=== PATIENT | female | born 1985 | race Caucasian/White ===

== ENCOUNTER → 2024-04-18 08:02 | Outpatient (BNV) | payer OTHER, SELFPAY | PROVIDERS: Visit Provider Internal Medicine Cardiovascular Disease | DX: E21.3 Hyperparathyroidism, unspecified (principal); F31.9 Bipolar disorder, unspecified; F41.1 Generalized anxiety disorder | CPT/HCPCS: 93010 ==

== ENCOUNTER 2024-04-18 10:08 | Emergency (ER) | payer OTHER, SELFPAY ==
[2024-04-18 10:13] VITALS: RESP 20; BMI 22.6
[2024-04-18 10:23] VITALS: BP 120/63; PULSE 82; RESP 16; TEMP 36.6; O2SAT 99
--- NOTE | 2024-04-18 10:42 | PC.NURSE ---
Terri comes in today from Partial Hospitalization Program at [facility] on a section 12 accompanied by two clinicians. Terri reports to this RN that she has suicidal ideation with a plan to asphyxiate herself with helium because she found it was the easiest and most painless way to according to [employer] . Patient is calm and cooperative, help seeking and verbalizes understanding of why she was brought over to the pod from partial. patient is aware she is one a section 12 for her safety. Pt reports that she was recently diagnosed with Bipolar II after struggling with symptoms of hypomania, pressured speech and periods of depression. She also endorses a PTSD history due to her alcoholic mother. patient reports that her treats her poorly at times and the only times he is nice to her is when he is high or intoxicated . Patient reports they have a son at home as well. Patient did have blood work taken this am for her psychiatrist, plan to hold off on additional bloodwork until provider has signed up for patient
[2024-04-18 11:06] LABS: Appearance Urine Clear; Color Urine Yellow; Glucose Urine UA Negative (Negative); Leukocyte Esterase Urine Negative (Negative); Nitrite Urine Negative (Negative); Specific Gravity - Urine <= 1.005 (1.005-1.025); Urine Blood Negative (Negative); Urine Ketones Negative (Negative); Urine Protein Negative (Neg-Trace)
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
[2024-04-18 11:07] VITALS: BP 114/92; PULSE 74; RESP 16; TEMP 36.8; O2SAT 97
[2024-04-18 11:09] LABS: Amphetamine Screen Urine Not Detected (Not Detect); Barbiturates, Urine Not Detected (Not Detect); Benzodiazepines Screen Urine Not Detected (Not Detect); Buprenorphine Scr Not Detected (Not Detect); Cannabinoid Screen Urine Not Detected (Not Detect); Cocaine Screen Urine Not Detected (Not Detect); Fentanyl, urine Not Detected (Not Detect); Methadone Screen, Urine Not Detected (Not Detect); Opiate Screen Urine Not Detected (Not Detect); Oxycodone Screen Urine Not Detected (Not Detect); Phencyclidine Screen Urine Not Detected (Not Detect)
[2024-04-18 11:34] LABS: UPreg QC Valid YES; Urine Pregnancy NEGATIVE (NEGATIVE)
--- NOTE | 2024-04-18 11:47 | PC.NURSE ---
Disregard Acute Care Transfer Worksheet, wrong patient
--- NOTE | 2024-04-18 14:45 | MHC.CARE ---
LVM with patient's requesting call back
[2024-04-18 15:40] VITALS: BP 97/66; PULSE 74; RESP 16; TEMP 37; O2SAT 98
== END 2024-04-18 15:41 | disposition home or self-care (01) ==
PROVIDERS: Emergency Provider Emergency Medicine
DX: F33.1 Major depressive disorder, recurrent, moderate (principal); R45.851 Suicidal ideations; F43.9 Reaction to severe stress, unspecified; Z63.0 Problems in relationship with spouse or partner; Z79.899 Other long term (current) drug therapy; Z51.81 Encounter for therapeutic drug level monitoring
CPT/HCPCS: 80307; 81003; 81025; 99285; S9485

== ENCOUNTER → 2024-04-19 09:00 | Outpatient (BNV) | payer OTHER, SELFPAY | PROVIDERS: Visit Provider Psychiatry & Neurology Psychiatry | DX: F31.81 Bipolar II disorder (principal); F41.3 Other mixed anxiety disorders; F63.89 Other impulse disorders; F43.9 Reaction to severe stress, unspecified | CPT/HCPCS: 90792; 99214 ==

== ENCOUNTER 2024-04-30 08:15 | Outpatient (RCR) | payer OTHER, SELFPAY ==
[2024-04-16 12:01] VITALS: BP 98/62; PULSE 80; TEMP 37.3
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
--- NOTE | 2024-04-18 10:06 | PC.NURSE ---
Patient's called the program and informed staff that Terri has a plan to buy helium and act on suicidal ideation. Terri told her to tell her son that she loves him. Terri showed up to the program this morning and met with program staff Linda. Per Linda patient stated that she got into an argument with her last night. She is expressing SI with a plan to buy helium. She stated she googled ways to that are painless a week ago. Joyce from care team was notified. Patient is on a Section 12 A to be evaluated by the Care Team in the ER. Patient has a dx of Bipolar II disorder. Nurse to Nurse done with Rosa Maria RN in the [facility]. [facility] staff Linda is escorting patient to the ER for a crisis evaluation.
--- NOTE | 2024-04-18 17:28 | HO.PHP ---
At roughly 9:30 am typewriter repairer met with Terri after pt's called PHP to express his concern for his 's safety. Terri stated to this typewriter repairer that she told her she wanted to kill herself and that she had a plan to do it using helium. Pt described some of their conversation, reported he was angry with her and unhappy in their marriage. Terri was tearful and had a slight tremor as she spoke. Pt also shared her dismisses his own mental health problems and blames Terri. Pt expressed sadness and regret for cheating on her . Pt was asked why she chose helium as her plan, pt stated because she looked up ways to end her life that were fast and painless. Pt was asked when she googled this, she said roughly 1 week ago. Pt asked if she purchased helium or owned any, pt stated No, but I would go buy it . Terri agreed she was unsafe, struggled to find words to express herself, visibly anxious and in distress during this conversation. Pt agreed to be evaluated by the Care Team in the [facility]. [facility] staff and providers were notified. Terri walked with staff to the ED on a section 12 to be evaluated.
--- NOTE | 2024-04-18 17:59 | HO.PHP ---
Client's case has been opened and reviewed in team
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
--- NOTE | 2024-04-26 23:49 | HO.PHPPROGNO ---
Subjective Subjective Date of Service: 04/26/24 Reason For Visit: depression,anxiety Interim History: Patient seen for follow-up. Denies any events since we last met. Last couple of days I've been more stable . Patient has been titrating dose of ABilify as directed by 1 mg q1-2 days. She reached 6 mg last night, denies any adverse effects. Has been sleeping better, is taking gabapentin at 600 mg and finds that helps well with sleep. She has continued to taper fluoxetine (from 80 mg) and decreased last week from 60 to 40 mg since last week. Denies any depressive symptoms or exacerbation in anxiety. In fact anxiety has been manageable and mood is overall more stable and less emotionally reactive. (I suspect fluoxetine at 80 mg may have been overactivating and contributed to hypomanic episode prior to admission. Says her usual dose for many years was <40 mg) Denies any panic attacks or SI thoughts. Things at home have been better as well. Her follow through with his [facility] outpatient appointment and has already been started on medication, I never thought I would see the day . She revisits her concerns about ADHD, I share that I don't disagree (developmental hx and cognitive/behavioral complaints are strongly suggestive of undiagnosed ADHD, and that at some point a dx and treatment might be helpful. I explain that patient would need to maintain relative degree of emotional stability (free of hypomanic/manic episodes and other psychiatric conditions (anxiety) are also relatively controlled for) for some period of time before any determination could be made regarding diagnosis or appropriateness for treatment (elba with a stimulant) which could provoke or exacerbate manic symptoms (especially if mood sx not fully controlled). Patient expresses understanding and agreement with plan. Medication Compliance: Yes Side effects from medications: No Attending Groups: Yes Review of Systems Acute medical concerns: No Mental Status Exam Mental Status Exam Narrative: Alert, oriented, in no acute distress. Calm, cooperative, engaged. Mood more stable , affect less anxious, brighter. Speech normal. Thought process linear, coherent, no expansiveness, no FOA or HAFSA. More future-oriented. Thought content related to stressors. Denies current SI. Denies any aggressive ideation or HI. Denies AH or VH. No evidence of psychosis. Insight and judgment fair-good Diagnostics Vital Signs (24Hr): BMI result Body Mass Index 30.0 Assessment & Plan Assessment & Plan (1) Bipolar II disorder: Status: Acute Code(s): F31.81 - Bipolar II disorder Assessment and Plan: mood instability, emotional reactivity and depressive symptoms, as well as history of post- depression, mild hypomanic epsiodes in past. Most recent episode was her most severe - but doesn't reach criteria for jacqui - may have been provoked by high dose of SSRI. 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 Code(s): F43.9 - Reaction to severe stress, unspecified Assessment and Plan: relational trauma, in childhood early exposure to sexualized and other inappropriate behaviors, raised by young single mother who struggled with impulse control and addiction Plan continue Abilify 5 mg qpm may utilize additional 2 mg dose as PRN - refill sent continue to taper fluoxetine - decrease to 20 mg qam and will plan to taper off in 2 weeks when following continue Wellbutrin SR 200 mg qam continue gabapentin 600 mg qhs PRN sleep we may not need to start lamotrigine (patient tolerating taper off fluoxetine and is responding well to ABilify at low dose) will d/c LTG continue to monitor Patient educated on: diagnosis and medication risk/benefits Informed Consent: understands Reason for contiued partial hosp. stay Substantial Risk for: rapid decompensation and med/psych decompensation Certification I certify that partial hospital treatment is medically necessary due to the symptoms and problems resulting from the patient's mental illness and the failure to treat the patient at the partial hospital level of care would likely result in the patient requiring inpatient psychiatric care which could not be prevented at a less intensive level of care. Total time managing care of this patient today __30__ minutes. Discharge Plan Discharge Attending provider: Keyanna Rudolph Medications: New aripiprazole 5 mg tablet 5 mg PO BEDTIME Qty: 30 0RF gabapentin 600 mg tablet 600 mg PO BEDTIME PRN (Reason: sleep) Qty: 30 0RF aripiprazole 2 mg tablet 2 mg PO DAILY PRN (Reason: as directed for activation/agitation) Qty: 14 0RF Continued fluoxetine 20 mg capsule 20 mg PO DAILY Qty: 30 0RF Rx Instructions: taper off after 2 weeks bupropion HCl 200 mg tablet sustained-release 12 hr 200 mg PO QAM Qty: 30 0RF Rx Instructions: Last filled 04/14/24 Stand Alone Forms: Patient Portal Discharge page Print Language: Malay
--- NOTE | 2024-04-29 11:29 | HO.PHP ---
Terri requested a new medication prescriber which was place through [facility] in [place]. Apt info as follows: 05/03/2024 10:00-11:00am [facility] Adult Comprehensive Assessment?IN PERSON? Prog: Outpatient Site: [address] [place] [address] Staff: Zbigniew Rojas 06/03/2024 09:00 AM - 10:00 AM Psychiatric E/M New - Face to Face v2?IN PERSON? Prog: Psychiatric Services Site:[address] [place] [address] Staff: GUERRERO GARCIA
--- NOTE | 2024-04-30 14:59 | P.PNPSP_ITS ---
Subjective Subjective Date of Service: 04/30/24 Reason For Visit: depression,anxiety Interim History: Met with patient. Reviewed charting. Overall patient has responded well to Abilify and currently on 5 mg. Gabapentin 600 mg helpful for bedtime. Currently at 20 mg of Prozac and we will formally discontinue this in 1 week. Advised if mood gets worse when discontinuing Prozac, to go back on 20 mg tablets. Mood stable. No depression. Not irritable. Feeling supported. Hopeful around current treatment plan and follow-up plans. Has a follow-up appointment/initial appointment with a prescriber in June. With that in mind sent prescriptions for Abilify 5 mg, gabapentin 600 mg, Wellbutrin 200 mg. Also noted on discharge instructions, to follow-up with new provider around ADHD symptoms and how they are with new med regimen and any potential adjustments in the future. Medication Compliance: Yes Side effects from medications: No Attending Groups: Yes Review of Systems Acute medical concerns: No Review of Systems Review of Systems Unremarkable Mental Status Exam Mental Status Exam Narrative: Pleasant. Engaged. Casually dressed and presented. Organized. Euthymic. No SI. No HI. No agitation. No psychosis. Insight and judgment good Diagnostics Vital Signs (24Hr): BMI result Body Mass Index 30.0 Assessment & Plan Assessment & Plan (1) Bipolar II disorder: Status: Acute Code(s): F31.81 - Bipolar II disorder Assessment and Plan: mood instability, emotional reactivity and depressive symptoms, as well as history of post- depression, mild hypomanic epsiodes in past. Most recent episode was her most severe - but doesn't reach criteria for jacqui - may have been provoked by high dose of SSRI. Also psychological mechanisms (maladaptive coping/immature defenses) that could also explain recent symptoms/behaviors (elba given chronicity of impulsiveness and reactivity since adolescence) (2) Other mixed anxiety disorders: Status: Acute Code(s): F41.3 - Other mixed anxiety disorders (3) Other impulse disorders: Status: Acute Code(s): F63.89 - Other impulse disorders Assessment and Plan: history of impulsive behaviors and limited decision-making that is long-standing and persists outside of mood episodes r/o ADHD or other causes (temperament, developmental hx, trauma) (4) Trauma and stressor-related disorder: Status: Acute Code(s): F43.9 - Reaction to severe stress, unspecified Assessment and Plan: relational trauma, in childhood early exposure to sexualized and other inappropriate behaviors, raised by young single mother who struggled with impulse control and addiction Plan 04/26/24: continue Abilify 5 mg qpm may utilize additional 2 mg dose as PRN - refill sent continue to taper fluoxetine - decrease to 20 mg qam and will plan to taper off in 2 weeks when following continue Wellbutrin SR 200 mg qam continue gabapentin 600 mg qhs PRN sleep we may not need to start lamotrigine (patient tolerating taper off fluoxetine and is responding well to ABilify at low dose) will d/c LTG continue to monitor 04/30/24: Currently at 20 mg of Prozac and we will formally discontinue this in 1 week. Advised if mood gets worse when discontinuing Prozac, to go back on 20 mg tablets. Mood stable. No depression. Not irritable. Feeling supported. Hopeful around current treatment plan and follow-up plans. Has a follow-up appointment/initial appointment with a prescriber in June. With that in mind sent prescriptions for Abilify 5 mg, gabapentin 600 mg, Wellbutrin 200 mg. Also noted on discharge instructions, to follow-up with new provider around ADHD symptoms and how they are with new med regimen and any potential adjustments in the future. Also reviewed lab work with patient from 04/18/2024. Patient educated on: medication risk/benefits and therapeutic strategies Informed Consent: understands Reason for contiued partial hosp. stay Substantial Risk for: stable for discharge Certification I certify that partial hospital treatment is medically necessary due to the symptoms and problems resulting from the patient's mental illness and the failure to treat the patient at the partial hospital level of care would likely result in the patient requiring inpatient psychiatric care which could not be prevented at a less intensive level of care. Total time managing care of this patient today _30___ minutes. Discharge Plan Discharge Attending provider: Keyanna Rudolph Additional Instructions: 05/03/2024 10:00-11:00am [facility] Adult Comprehensive Assessment?IN PERSON? Prog: Outpatient Site: [address] [place] [address] Staff: Zbigniew Rojas 06/03/2024 09:00 AM - 10:00 AM Psychiatric E/M New - Face to Face v2?IN PERSON? Prog: Psychiatric Services Site:[address] [place] [address] Staff: GUERRERO GARCIA FOLLOW UP REF ADHD SYMPTOMS WITH NEW MEDICATION REGIMEN AND ANY ADJUSTMENTS NE EDED OR OTHER MEDICATION OPTIONS Medications: Continued fluoxetine 20 mg capsule 20 mg PO DAILY Qty: 30 0RF Rx Instructions: taper off after 2 weeks bupropion HCl 200 mg tablet sustained-release 12 hr 200 mg PO QAM Qty: 30 0RF Rx Instructions: Last filled 04/14/24 aripiprazole 5 mg tablet 5 mg PO BEDTIME Qty: 30 0RF aripiprazole 2 mg tablet 2 mg PO DAILY PRN (Reason: as directed for activation/agitation) Qty: 28 0RF Changed gabapentin 600 mg tablet 600 mg PO BEDTIME Qty: 30 0RF Stand Alone Forms: Patient Portal Discharge page Patient Education: ADHD in Adults (ED), Bipolar Disorder (DC), Post Traumatic Stress Disorder (DC) Print Language: Latvian Telehealth Telehealth Telehealth Platform: Other (please specify) (Ensa) Location of provider rendering services: practice address Location of patient: other ([facility]) Patient Identification confirmed using: Name, : Yes Telehealth method: video Patient verbally consented to treatment: Yes Minutes spent on Phone/Video with Pt.: 15
== END 2024-04-30 23:59 | disposition home or self-care (01) ==
LOC: HO.PHPA 08:15
PROVIDERS: Visit Provider Psychiatry & Neurology Psychiatry
DX: F31.81 Bipolar II disorder (principal); F41.3 Other mixed anxiety disorders; F63.89 Other impulse disorders; F43.9 Reaction to severe stress, unspecified; Z79.899 Other long term (current) drug therapy
CPT/HCPCS: 90791; 90853